=== PATIENT | female | born 1995 | race Caucasian/White ===

== ENCOUNTER 2017-01-02 12:42 | Emergency (ER) | payer OTHER ==
[2017-01-02 13:00] VITALS: BP 115/70
[2017-01-02] MEDS ORDERED: Ibuprofen TAB* 600 MG PO ONE (13:23)
--- NOTE | 2017-01-02 13:23 | UC ---
Shoulder Pain HPI - HPI Summary HPI Summary: right shoulder pain x 1 day s/p fall on her right arm and then landed on her right shoulder + pain and swelling of the right shoulder, difficulty moving her right arm - History of Current Complaint Chief Complaint: UCUpperExtremity Stated Complaint: S/P FALL RIGHT ARM INJURY Time Seen by Provider: 01/02/17 12:46 Hx Obtained From: Patient Hx Last Menstrual Period: 12/15/16 Onset/Duration: Sudden Onset, Lasting Days - 1, Still Present Timing: Constant Severity Initially: Severe Severity Currently: Severe Location Of Pain: Is Discrete @ - right shoulder Character: Aching, Throbbing Aggravating Factor(s): Movement, Lifting, Flexion, Extension Alleviating Factor(s): Rest, Ice Associated Signs And Symptoms: Positive: Swelling, Weakness - Allergies/Home Medications Allergies/Adverse Reactions: Allergies Allergy/AdvReac Type Severity Reaction Status Date / Time No Known Allergies Allergy Verified 01/02/17 12:48 Home Medications: Home Medications NK [No Home Medications Reported] 01/02/17 [History Confirmed 01/02/17] PMH/Surg Hx/FS Hx/Imm Hx Previously Healthy: Yes - Surgical History Surgical History: None - Family History Known Family History: Negative: Diabetes - Social History Alcohol Use: Occasionally Substance Use Type: Marijuana Substance Use Comment - Amount & Last Used: last week Smoking Status (MU): Never Smoked Tobacco - Immunization History Most Recent Influenza Vaccination: NONE 2016 Review of Systems Constitutional: Negative Skin: Negative Eyes: Negative ENT: Negative Respiratory: Negative Is Patient Immunocompromised?: No All Other Systems Reviewed And Are Negative: Yes Physical Exam Triage Information Reviewed: Yes Appearance: Well-Appearing, Well-Nourished, Pain Distress Vital Signs: Initial Vital Signs Temp 98.4 F 01/02/17 12:49 Pulse 88 01/02/17 12:49 Resp 16 01/02/17 12:49 BP 115/70 01/02/17 12:49 Pulse Ox 98 01/02/17 12:49 Vital Signs Reviewed: Yes Eyes: Positive: Conjunctiva Clear ENT: Positive: Normal ENT inspection, Hearing grossly normal, Pharynx normal Neck: Positive: Supple, Nontender, No Lymphadenopathy Respiratory: Positive: Chest non-tender, Lungs clear, Normal breath sounds Cardiovascular: Positive: RRR, No Murmur, Pulses Normal Musculoskeletal: Positive: Other: - right shoulder: + swelling, tenderness at AC joint , limited ROM on flexion , abduction limithed strength Neurological Exam: Normal Neurological: Positive: Alert, Muscle Tone Normal Shoulder Course/Dx - Differential Dx/Diagnosis Provider Diagnoses: fracture right clavicle Discharge - Discharge Plan Condition: Stable Disposition: HOME Patient Education Materials: Clavicle Fracture (ED) Referrals: Kvng Martinez MD [Medical Doctor] - As Soon As Possible No Primary Care Phys,NOPCP [Primary Care Provider] -
--- NOTE | 2017-01-02 14:03 | RAD ---
INDICATION: Right shoulder injury. TECHNIQUE: 4 views of the right shoulder were obtained. FINDINGS: There is a transverse nondisplaced fracture of the distal lateral aspect of the clavicle. No other fractures are seen. Joint spaces appear maintained. IMPRESSION: TRANSVERSE NONDISPLACED FRACTURE OF THE LATERAL ASPECT OF THE CLAVICLE.
== END 2017-01-02 14:16 | disposition home or self-care (01) ==
LOC: UCCORT 12:42
DX: S42.034A Nondisplaced fracture of lateral end of right clavicle, initial encounter for closed fracture (principal); W19.XXXA Unspecified fall, initial encounter; Y93.9 Activity, unspecified; Y92.9 Unspecified place or not applicable; Z32.02 Encounter for pregnancy test, result negative; F12.90 Cannabis use, unspecified, uncomplicated
CPT/HCPCS: 84702; 99203; A9270-GY; G0463